=== PATIENT | female | born 1985 | race Caucasian/White ===

== ENCOUNTER 2017-06-20 14:09 | Emergency (ER) | payer BC, OTHER ==
[~2017-06-20] VITALS: Ht 160 cm; Wt 61.0 kg
[~2017-06-20 14:09] MED LIST: AMOXICILLIN/CL875 MG OR; AUGMENTIN PO; AUGMENTIN875TAB OR; BACTRIM DS1 TAB PO; BIRTH CONTROL; CARAFATE1 GM PO; CLARITIN10 M2 PO; COLACE100 MG PO; DIFLUCAN150 MG OR; FLEXERIL OR; FLUARIX QUADRIV1 INJ IM; IMITREX100 M1 PO; KEFLEX500 MG PO; LOW-OGESTREL PO; MEDDOSEPAK PO; NAPROSYN500 MG OR; NIFEDIPINE20 MG PO; NITROFUR MAC50 MG PO; NITROFURANTN100 MG PO; NYSTATIN100000 M1 PO; PHENERGAN12.5 MG/TA PO; PREDNISONE10 MG PO; PRENATAL1 TAB PO; PRILOSEC20 MG PO; PRILOSEC40 MG PO; QNASL80 MCG; TESSALON200 MG PO; TUBERSOL5 MG/0.1 M ID; XANAX0.25 MG PO; XANAX0.5 MG PO; ZOFRAN ODT4 MG PO
[2017-06-20 16:23] LABS: URINE BILIRUBIN - DIPSTICK NEGATIVE (NEGATIVE); URINE BLOOD DIPSTICK NEGATIVE (NEGATIVE); URINE COLOR YELLOW; URINE GLUCOSE - DIPSTICK NEGATIVE (NEGATIVE); URINE KETONE NEGATIVE (NEGATIVE); URINE LEUK ESTERASE NEGATIVE (NEGATIVE); URINE NITRITE - DIPSTICK NEGATIVE (Negative); URINE PH 7.5 (4.5-8.0); URINE PROTEIN - DIPSTICK NEGATIVE (NEG-TRACE); URINE SPECIFIC GRAVITY 1.015; URINE UROBILINOGEN - DIPSTICK 0.2 E.U./dL (0.2)
[2017-06-20 16:24] LABS: IMMATURE GRANULOCYTES 0.5 % (0.0-1.0); MEAN CELL VOLUME 92.1 fL CALC (80.0-100.0); MEAN CORPUSCULAR HGB 30.8 pG CALC (26.0-32.0); MEAN CORPUSCULAR HGB CONC 33.4 g/L CALC (32.0-36.0); NEUT# 9.64 thou/uL (2.00-7.15); RED BLOOD COUNT 4.55 mill/uL (4.20-5.60); RED CELL DISTRI WIDTH 12.6 % (11.5-15.5); URINE CLARITY CLEAR
[2017-06-20 16:26] LABS: HEMATOCRIT 41.9 % (37.0-47.0)
[2017-06-20 16:32] LABS: COCAINE NEGATIVE (NEGATIVE); METHADONE NEGATIVE (NEGATIVE); TETRAHYDROCANNABIONOL NEGATIVE (NEGATIVE); TRICYLIC ANTIDEPRESSANTS POSITIVE (NEGATIVE)
[2017-06-20 16:33] LABS: BARBITURATES NEGATIVE (NEGATIVE); OXCYCODONE POSITIVE (NEGATIVE)
[2017-06-20 16:42] LABS: ANION GAP 16 (6-22 (CALC)); BUN 11 mg/dL (7-17); BUN/CREATININE RATIO 17 (12-20 (CALC)); CARBON DIOXIDE 28 mmol/l (22-30); CHLORIDE 104 mmol/l (95-108); CREATININE 0.7 mg/dL (0.5-1.0); GFR > 60 ML/MIN (>=60 (CALC)); GFR FOR AFR.AMER. > 60 ML/MIN (>=60 (CALC)); POTASSIUM 4.2 mmol/l (3.5-5.1); SODIUM 143 mmol/l (137-146)
[2017-06-20 16:55] LABS: INFLUENZA A NONE DETECTED (NONE DETECT); INFLUENZA B NONE DETECTED (NONE DETECT)
[2017-06-20] MEDS ORDERED: DOXYCYC MONO100 M2 PO ×2 (17:07→18:36)
[2017-06-20 17:15] VITALS: BP 119/79
== END 2017-06-20 17:37 | disposition home or self-care (01) | DRG 607 ==
LOC: ED 14:09
PROVIDERS: Family Medicine
PROC: 0T9B70Z Drainage of Bladder with Drainage Device, Via Natural or Artificial Opening (ICD-10-PCS; principal; 2017-06-20)
DX: L73.8 Other specified follicular disorders (principal); F17.210 Nicotine dependence, cigarettes, uncomplicated; R53.83 Other fatigue; M79.7 Fibromyalgia

== ENCOUNTER 2017-07-30 16:33 | Emergency (ER) | payer BC, OTHER ==
[~2017-07-30] VITALS: Ht 160 cm; Wt 63.6 kg
[~2017-07-30 16:33] MED LIST changes: +DOXYCYC MONO100 M2 PO
[2017-07-30 17:57] LABS: IMMATURE GRANULOCYTES 0.4 % (0.0-1.0); MEAN CELL VOLUME 90.9 fL CALC (80.0-100.0); MEAN CORPUSCULAR HGB 30.3 pG CALC (26.0-32.0); MEAN CORPUSCULAR HGB CONC 33.3 g/L CALC (32.0-36.0); NEUT# 6.06 thou/uL (2.00-7.15); RED BLOOD COUNT 4.29 mill/uL (4.20-5.60); RED CELL DISTRI WIDTH 13.2 % (11.5-15.5)
[2017-07-30 18:01] LABS: URINE BILIRUBIN - DIPSTICK NEGATIVE (NEGATIVE); URINE BLOOD DIPSTICK NEGATIVE (NEGATIVE); URINE COLOR YELLOW; URINE GLUCOSE - DIPSTICK NEGATIVE (NEGATIVE); URINE KETONE TRACE mg/dL (NEGATIVE); URINE LEUK ESTERASE NEGATIVE (NEGATIVE); URINE NITRITE - DIPSTICK NEGATIVE (Negative); URINE PROTEIN - DIPSTICK NEGATIVE (NEG-TRACE); URINE SPECIFIC GRAVITY >=1.030; URINE UROBILINOGEN - DIPSTICK 0.2 E.U./dL (0.2)
[2017-07-30 18:06] LABS: URINE CLARITY CLEAR
[2017-07-30 18:14] LABS: COCAINE NEGATIVE (NEGATIVE); METHADONE NEGATIVE (NEGATIVE); TETRAHYDROCANNABIONOL NEGATIVE (NEGATIVE)
[2017-07-30 18:15] LABS: BARBITURATES NEGATIVE (NEGATIVE); OXCYCODONE POSITIVE (NEGATIVE); TRICYLIC ANTIDEPRESSANTS POSITIVE (NEGATIVE)
[2017-07-30 18:17] LABS: ALKALINE PHOSPHATASE 73 u/l (38-126); ANION GAP 18 (6-22 (CALC)); BILIRUBIN, TOTAL 0.3 mg/dL (0.0-1.4); BUN 12 mg/dL (7-17); BUN/CREATININE RATIO 18 (12-20 (CALC)); CARBON DIOXIDE 27 mmol/l (22-30); CHLORIDE 104 mmol/l (95-108); CREATININE 0.7 mg/dL (0.5-1.0); GFR > 60 ML/MIN (>=60 (CALC)); GFR FOR AFR.AMER. > 60 ML/MIN (>=60 (CALC)); POTASSIUM 4.1 mmol/l (3.5-5.1); SGOT/AST 20 u/l (14-36); SGPT/ALT 28 u/l (9-52); SODIUM 145 mmol/l (137-146)
[2017-07-30 18:19] LABS: ALBUMIN 4.3 g/dL (3.2-5.0); TOTAL PROTEIN 7.4 g/dL (6.3-8.2)
[2017-07-30 18:28] LABS: MYOGLOBIN 20 ng/mL (0 - 62)
[2017-07-30] MEDS ORDERED: ADDERALL XR20 MG PO (18:41)
[2017-07-30] MEDS ORDERED: CITALOPRAM20 MG PO (18:41)
[2017-07-30] MEDS ORDERED: HYDROCO/APAP1 TA9 PO (18:41)
[2017-07-30] MEDS ORDERED: AMITRIPTYLIN25 MG PO (18:42)
[2017-07-30] MEDS ORDERED: ALPRAZOLAM0.5 MG PO (18:42)
[2017-07-30] MEDS ORDERED: METO25TAB PO (19:01)
[2017-07-30 19:29] VITALS: BP 110/62
== END 2017-07-30 19:38 | disposition home or self-care (01) | DRG 310 ==
LOC: ED 16:33
PROVIDERS: Family Medicine
DX: R00.2 Palpitations (principal); G62.9 Polyneuropathy, unspecified; R06.02 Shortness of breath; F41.9 Anxiety disorder, unspecified; M79.7 Fibromyalgia; R00.0 Tachycardia, unspecified; R42 Dizziness and giddiness; H53.8 Other visual disturbances

== ENCOUNTER 2017-08-02 17:30 | Emergency (ER) | payer BC, OTHER ==
[~2017-08-02] VITALS: Ht 160 cm; Wt 60.0 kg
[~2017-08-02 17:30] MED LIST changes: +ADDERALL XR20 MG PO; +ALPRAZOLAM0.5 MG PO; +AMITRIPTYLIN25 MG PO; +CITALOPRAM20 MG PO; +HYDROCO/APAP1 TA9 PO; +METO25TAB PO
[2017-08-02 18:03] LABS: HEMATOCRIT 38.2 % (37.0-47.0); HEMOGLOBIN 12.6 g/dl (12.0-16.0); IMMATURE GRANULOCYTES 0.5 % (0.0-1.0); MEAN CELL VOLUME 90.7 fL CALC (80.0-100.0); MEAN CORPUSCULAR HGB 29.9 pG CALC (26.0-32.0); NEUT# 5.59 thou/uL (2.00-7.15); RED BLOOD COUNT 4.21 mill/uL (4.20-5.60); RED CELL DISTRI WIDTH 13.1 % (11.5-15.5)
[2017-08-02 18:21] LABS: ALBUMIN 4.1 g/dL (3.2-5.0); ALKALINE PHOSPHATASE 58 u/l (38-126); ANION GAP 17 (6-22 (CALC)); BILIRUBIN, TOTAL 0.5 mg/dL (0.0-1.4); BUN 11 mg/dL (7-17); BUN/CREATININE RATIO 16 (12-20 (CALC)); CARBON DIOXIDE 21 mmol/l (22-30); CHLORIDE 107 mmol/l (95-108); CREATININE 0.7 mg/dL (0.5-1.0); GFR > 60 ML/MIN (>=60 (CALC)); GFR FOR AFR.AMER. > 60 ML/MIN (>=60 (CALC)); SGOT/AST 29 u/l (14-36); SGPT/ALT 31 u/l (9-52); SODIUM 141 mmol/l (137-146); TOTAL PROTEIN 6.7 g/dL (6.3-8.2)
[2017-08-02 18:35] LABS: ETHYL ALCOHOL 0 mg/dl (0-30); MYOGLOBIN 18 ng/mL (0 - 62)
[2017-08-02 18:39] LABS: BARBITURATES NEGATIVE (NEGATIVE); COCAINE NEGATIVE (NEGATIVE); METHADONE NEGATIVE (NEGATIVE); OXCYCODONE POSITIVE (NEGATIVE); TETRAHYDROCANNABIONOL NEGATIVE (NEGATIVE); TRICYLIC ANTIDEPRESSANTS POSITIVE (NEGATIVE)
[2017-08-02 18:44] LABS: URINE BILIRUBIN - DIPSTICK NEGATIVE (NEGATIVE); URINE BLOOD DIPSTICK TRACE-INTACT (NEGATIVE); URINE COLOR YELLOW; URINE GLUCOSE - DIPSTICK NEGATIVE (NEGATIVE); URINE KETONE NEGATIVE (NEGATIVE); URINE LEUK ESTERASE NEGATIVE (NEGATIVE); URINE NITRITE - DIPSTICK NEGATIVE (Negative); URINE PROTEIN - DIPSTICK NEGATIVE (NEG-TRACE); URINE UROBILINOGEN - DIPSTICK 0.2 E.U./dL (0.2)
[2017-08-02 18:45] LABS: URINE CLARITY CLEAR
[2017-08-02] MEDS ORDERED: NAPROSYN500 MG PO (18:52)
[2017-08-02 19:35] VITALS: BP 131/60
== END 2017-08-02 19:34 | disposition home or self-care (01) | DRG 313 ==
LOC: ED 17:30
PROVIDERS: Emergency Medicine
DX: R07.89 Other chest pain (principal); F15.129 Other stimulant abuse with intoxication, unspecified; F11.10 Opioid abuse, uncomplicated; F13.10 Sedative, hypnotic or anxiolytic abuse, uncomplicated; F17.210 Nicotine dependence, cigarettes, uncomplicated; H91.90 Unspecified hearing loss, unspecified ear; M79.7 Fibromyalgia; I34.1 Nonrheumatic mitral (valve) prolapse

== ENCOUNTER → 2018-01-20 | Outpatient (REF) | payer OTHER ==
[~2018-01-20] MED LIST changes: +CELEXA20 M1 PO; +LAMOTRIGINE ER200 MG; +NAPROSYN500 MG PO
== END | disposition home or self-care (01) | DRG 392 ==
LOC: ULTRASND 09:16
PROVIDERS: ATTEND Internal Medicine Gastroenterology
DX: R10.13 Epigastric pain (principal); R11.2 Nausea with vomiting, unspecified; R14.0 Abdominal distension (gaseous)